=== PATIENT | female | born 2000 | race African-American/Black ===

== ENCOUNTER 2019-05-25 08:15 | Emergency (ER) | payer SELFPAY ==
[~2019-05-25] VITALS: Ht 177.8 cm; Wt 81.0 kg
[2019-05-25 08:37] VITALS: BP 149/66
[2019-05-25] MEDS ORDERED: NEOMY/BACITR/POLYMYXIN OINT PACKET. TP ONE (09:00)
[2019-05-25] MEDS ORDERED: KETOROLAC 30 MG/ML VIAL. IM ONE (09:00)
--- NOTE | 2019-05-25 09:43 | RAD ---
Examination: CT HEAD AND MAXILLOFACIAL WO History: Left facial pain, swelling, bruising Comparison/Correlation: None Findings: Axial images of the head and maxillofacial structures were obtained. Sagittal and coronal reformatted images of the maxillofacial structures were provided. Ventricles are normal size. No intracranial hemorrhage, midline shift or mass effect. Moderate size left maxillary sinus mucous retention cyst is present. Small right maxillary sinus retention cyst also is present opacification of the maxillary sinus ostia is present greater on the right. No fracture or bone destruction. Subcutaneous edema is noted involving the left anterior facial soft tissues. A small gas within soft tissues at the left inferolateral periorbital region is present subcutaneously mixed density left frontal bony structures are unremarkable. No fracture or destructive change. Impression: Edema of the subcutis fat of the face extending from the infraorbital region level inferiorly to the lower left maxillary sinus level. Small focus of gas noted superiorly within the subcutaneous fat. No loculated collection. No bone destruction. Chronic paranasal sinus. No suspicious intracranial process. PQRS Compliance Statement: One or more of the following individualized dose reduction techniques were utilized for this examination: 1. Automated exposure control 2. Adjustment of the mA and/or kV according to patient size 3. Use of iterative reconstruction technique Electronically signed by: Teddy Church MD (05/25/2019 9:40 AM) [id number]
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
== END 2019-05-25 10:25 | disposition home or self-care (01) ==
LOC: ER 08:15
DX: S00.83XA Contusion of other part of head, initial encounter (principal); R51 Headache; R60.0 Localized edema; F12.90 Cannabis use, unspecified, uncomplicated; W50.0XXA Accidental hit or strike by another person, initial encounter; Y93.89 Activity, other specified; Y92.89 Other specified places as the place of occurrence of the external cause; Y99.8 Other external cause status
CPT/HCPCS: 70450; 70486; 96372; 99285; J1885